=== PATIENT | male | born 1950 | race Caucasian/White ===

== ENCOUNTER 2018-05-24 12:54 | Inpatient (IN) | payer MEDICARE, SELFPAY ==
[~2018-05-24] VITALS: Ht 182.9 cm; Wt 70.4 kg
[2018-05-24] MEDS ORDERED: SODIUM CHLORIDE FLUSH 10ML SYR IVF ONE (13:30)
[2018-05-24] MEDS ORDERED: ONDANSETRON 2MG/ML, 2ML IVPush ONE (13:30)
[2018-05-24] MEDS ORDERED: ONDANSETRON 2MG/ML, 2ML ONE (13:49)
[2018-05-24] MEDS ORDERED: MORPHINE SULFATE 4 MG/ML, 1ML ONE ×2 (13:49→15:49)
[2018-05-24] MEDS: MORPHINE SULFATE 4 MG/ML, 1ML IVPush PRN ×2 (13:52→15:52)
[2018-05-24 14:01] LABS: BASOPHILS # (AUTO) 0.01 x10^3/uL (0-0.1); BASOPHILS % (AUTO) 0 % (0-1); EOSINOPHILS # (AUTO) 0.01 x10^3/uL (0-0.4); EOSINOPHILS % (AUTO) 0 % (1-7); LYMPHOCYTES # (AUTO) 1.32 x10^3/uL (1-3.4); LYMPHOCYTES % (AUTO) 11 % (22-44); MD NO; MEAN CORPUSCULAR HEMOGLOBIN 31.7 pg (27.5-34.5); MEAN CORPUSCULAR HGB CONC 33.6 g/dL (33.2-36.2); MEAN CORPUSCULAR VOLUME 94.4 fL (81-97); MEAN PLATELET VOLUME 8.2 fL (7.4-10.4); MONOCYTES # (AUTO) 0.49 x10^3/uL (0.2-0.8); MONOCYTES % (AUTO) 4 % (2-9); NEUTROPHILS # (AUTO) 10.67 x10^3/uL (1.8-6.8); NEUTROPHILS % (AUTO) 85 % (42-75); PLATELET COUNT 220 x10^3/uL (130-400); RED BLOOD COUNT 4.92 x10^6/uL (4.38-5.82); RED CELL DISTRIBUTION WIDTH 13.9 % (9.4-14.8)
[2018-05-24 14:09] LABS: INTERNATIONAL NORMALIZED RATIO 1.04 (0.93-1.1)
[2018-05-24 14:10] LABS: ALANINE AMINOTRANSFERASE 21 U/L (12-78); ANION GAP 13 mmol/L (5-15); CALCIUM 9.6 mg/dL (8.5-10.1); CHLORIDE 105 mmol/L (98-107); CREATININE 1.12 mg/dL (0.7-1.3)
[2018-05-24 14:12] LABS: ALKALINE PHOSPHATASE 91 U/L (45-117); BILIRUBIN,TOTAL 0.5 mg/dL (0.2-1.0)
[2018-05-24] MEDS ORDERED: OMNIPAQUE 350 MG/ML, 150 ML BOTTLE ONE (15:26)
[2018-05-24] MEDS ORDERED: HEPARIN 25,000 UNITS/500ML PMX 500 ML ONE (16:29)
[2018-05-24] MEDS ORDERED: HEPARIN 5,000 UNITS/ML, 1ML ONE (16:29)
[2018-05-24] MEDS ORDERED: HEPARIN 5,000 UNITS/ML, 1ML IV PRN (16:30)
[2018-05-24] MEDS ORDERED: HEPARIN 5,000 UNITS/ML, 1ML IV ONE (16:30)
[2018-05-24] MEDS: HEPARIN 25,000 UNITS/500ML PMX 500 ML IV PRN (17:08)
[2018-05-24] MEDS ORDERED: SODIUM CHLORIDE 0.9% 1,000 ML IV SCH (17:26)
[2018-05-24] MEDS ORDERED: LABETALOL 5MG/ML, 20ML IVPush PRN (17:30)
[2018-05-24] MEDS ORDERED: hydrALAzine 20 MG/ML, 1ML IVPush PRN (17:30)
[2018-05-24] MEDS ORDERED: POLYETHYLENE GLYCOL 17 GM PACKET PO PRN (17:30)
[2018-05-24] MEDS ORDERED: BISACODYL 10 MG SUPP PR PRN (17:30)
[2018-05-24] MEDS ORDERED: DOCUSATE 100 MG CAPSULE PO PRN (17:30)
[2018-05-24] MEDS ORDERED: ACETAMINOPHEN 325 MG TABLET PO PRN (17:30)
[2018-05-24] MEDS: NICOTINE 21 MG/24 HR PATCH.TD24 TD SCH (17:30)
[2018-05-24] MEDS ORDERED: BACLOFEN 10 MG TABLET PO PRN (17:30)
[2018-05-24] MEDS ORDERED: ACET325T14 PO (17:32)
[2018-05-24] MEDS: HYDROcodone/APAP 5/325 TABLET PO PRN (19:30)
[2018-05-24 19:32] VITALS: BP 158/79
[2018-05-24 20:53] LABS: MICROSCOPIC NOT IND
[2018-05-24 21:04] LABS: CULTURE INDICATED? NO
[2018-05-24] MEDS ORDERED: morphine SULFATE/PF 0.5 MG/ML, 10ML IV ONE (22:30)
[2018-05-24] MEDS ORDERED: morphine SULFATE 10 MG/ML, 1ML ONE (22:36)
[2018-05-24] MEDS ORDERED: morphine SULFATE 10 MG/ML, 1ML IVPush ONE (23:00)
[2018-05-25 02:47] VITALS: BP 154/74
[2018-05-25 05:55] LABS: BASOPHILS # (AUTO) 0.05 x10^3/uL (0-0.1); BASOPHILS % (AUTO) 1 % (0-1); EOSINOPHILS # (AUTO) 0.13 x10^3/uL (0-0.4); EOSINOPHILS % (AUTO) 1 % (1-7); LYMPHOCYTES # (AUTO) 2.73 x10^3/uL (1-3.4); LYMPHOCYTES % (AUTO) 25 % (22-44); MD NO; MEAN CORPUSCULAR HEMOGLOBIN 32.5 pg (27.5-34.5); MEAN CORPUSCULAR HGB CONC 33.8 g/dL (33.2-36.2); MEAN CORPUSCULAR VOLUME 96.1 fL (81-97); MEAN PLATELET VOLUME 8.1 fL (7.4-10.4); MONOCYTES # (AUTO) 0.78 x10^3/uL (0.2-0.8); MONOCYTES % (AUTO) 7 % (2-9); NEUTROPHILS # (AUTO) 7.32 x10^3/uL (1.8-6.8); NEUTROPHILS % (AUTO) 67 % (42-75); PLATELET COUNT 184 x10^3/uL (130-400); RED BLOOD COUNT 4.47 x10^6/uL (4.38-5.82)
[2018-05-25 06:04] LABS: ANION GAP 7 mmol/L (5-15); CALCIUM 8.6 mg/dL (8.5-10.1); CHLORIDE 105 mmol/L (98-107); CREATININE 0.88 mg/dL (0.7-1.3)
[2018-05-25] MEDS: HYDROcodone/APAP 5/325 TABLET PO PRN ×4 (06:34→20:30)
[2018-05-25 07:59] LABS: CHOL/HDL RATIO 4.5
[2018-05-25 08:00] VITALS: BP 162/81
[2018-05-25 13:45] VITALS: BP 108/69
[2018-05-25] MEDS: NICOTINE 21 MG/24 HR PATCH.TD24 TD SCH (17:54)
[2018-05-25 20:00] VITALS: BP 132/71
[2018-05-25] MEDS: HEPARIN 25,000 UNITS/500ML PMX 500 ML IV PRN (22:15)
[2018-05-26 02:00] VITALS: BP 122/67
[2018-05-26] MEDS ORDERED: HEPARIN 5,000 UNITS/ML, 1ML ONE (06:20)
[2018-05-26] MEDS ORDERED: PROTAMINE SULFATE 10 MG/ML, 5ML ONE ×2 (06:20→06:25)
[2018-05-26] MEDS ORDERED: THROMBIN 5,000 UNIT VIAL TP ONE ×2 (06:20→07:16)
[2018-05-26] MEDS ORDERED: HEPARIN 1,000 UNITS/ML, 10ML ONE ×2 (06:24→07:16)
[2018-05-26] MEDS ORDERED: MIDAZOLAM 1 MG/ML, 2ML ONE (07:08)
[2018-05-26] MEDS ORDERED: FENTANYL PF 250 MCG/5ML ONE (07:08)
[2018-05-26] MEDS ORDERED: LIDOCAINE-MPF 2% ,5ML ONE (07:10)
[2018-05-26] MEDS ORDERED: PROPOFOL 10 MG/ML, 20ML ONE (07:10)
[2018-05-26] MEDS ORDERED: ROCURONIUM 10MG/ML,5ML ONE (07:10)
[2018-05-26] MEDS ORDERED: PHENYLEPHRINE 10 MG/ML ONE (07:11)
[2018-05-26] MEDS ORDERED: CEFAZOLIN 1,000 MG ONE ×2 (07:11)
[2018-05-26] MEDS ORDERED: NEOSTIGMINE 1 MG/ML, 10ML ONE (07:22)
[2018-05-26] MEDS ORDERED: DEXAMETHASONE 4 MG/ML, 1ML ONE (07:22)
[2018-05-26] MEDS ORDERED: BACITRACIN 50,000 UNIT ONE (07:43)
[2018-05-26] MEDS ORDERED: HALOPERIDOL 5 MG/ML IV PRN (08:30)
[2018-05-26] MEDS ORDERED: ALBUTEROL/IPRATROPIUM 2.5MG/0.5MG, 3 ML NPPB PRN (08:30)
[2018-05-26] MEDS ORDERED: HYDROmorphone 2 MG/ML, 1ML IVPush PRN (08:30)
[2018-05-26] MEDS ORDERED: hydrALAzine 20 MG/ML, 1ML IV PRN (08:30)
[2018-05-26] MEDS ORDERED: MEPERIDINE/PF 25MG/0.5ML IVPush PRN (08:30)
[2018-05-26] MEDS ORDERED: LORazepam 2 MG/ML, 1ML IVPush PRN (08:30)
[2018-05-26] MEDS ORDERED: ACETAMINOPHEN 325 MG TABLET PO PRN (08:30)
[2018-05-26] MEDS ORDERED: OXYcodone 5 MG/5 ML ORAL.SOL UDC PO PRN (08:30)
[2018-05-26] MEDS ORDERED: LABETALOL 5MG/ML, 20ML IV PRN (08:30)
[2018-05-26] MEDS ORDERED: PROMETHAZINE 25 MG/ML, 1ML IV PRN (08:30)
[2018-05-26] MEDS ORDERED: NEOSPORIN OINT, 15GM ONE (08:52)
[2018-05-26] MEDS ORDERED: OXYcodone 5 MG/5 ML ORAL.SOL UDC ONE ×2 (09:29→09:34)
[2018-05-26] MEDS ORDERED: FENTANYL PF 100 MCG/2ML ONE (09:29)
[2018-05-26] MEDS: FENTANYL PF 100 MCG/2ML IV PRN ×2 (09:36→09:41)
[2018-05-26] MEDS: HYDROcodone/APAP 5/325 TABLET PO PRN ×2 (13:07→17:30)
[2018-05-26 14:00] VITALS: BP 110/64
[2018-05-26] MEDS: NICOTINE 21 MG/24 HR PATCH.TD24 TD SCH (17:30)
[2018-05-26 19:25] VITALS: BP 108/62
[2018-05-27 01:39] VITALS: BP 116/69
[2018-05-27] MEDS: HYDROcodone/APAP 5/325 TABLET PO PRN ×3 (05:31→20:07)
[2018-05-27 05:56] LABS: ALBUMIN 3.2 g/dL (3.4-5.0); ANION GAP 6 mmol/L (5-15); CALCIUM 8.8 mg/dL (8.5-10.1); CHLORIDE 103 mmol/L (98-107); CREATININE 1.03 mg/dL (0.7-1.3)
[2018-05-27 06:49] VITALS: BP 100/63
[2018-05-27] MEDS: ASPIRIN 81 MG TABLET EC PO SCH (10:45)
[2018-05-27] MEDS: CLOPIDOGREL 75 MG TABLET PO SCH (10:45)
[2018-05-27 12:19] VITALS: BP 114/66
[2018-05-27] MEDS: NICOTINE 21 MG/24 HR PATCH.TD24 TD SCH (16:40)
[2018-05-27 19:11] VITALS: BP 119/75
[2018-05-28 01:45] VITALS: BP 120/74
[2018-05-28] MEDS: ASPIRIN 81 MG TABLET EC PO SCH (06:03)
[2018-05-28 06:54] VITALS: BP 100/66
[2018-05-28] MEDS ORDERED: OXYcodone/APAP 7.5/325MG TABLET PO PRN (07:30)
[2018-05-28] MEDS: CLOPIDOGREL 75 MG TABLET PO SCH (09:00)
[2018-05-28] MEDS ORDERED: ASPI81TA45 PO (10:19)
[2018-05-28] MEDS ORDERED: ATOR20TA37 PO (10:19)
[2018-05-28] MEDS ORDERED: CLOP75TA PO (10:19)
[2018-05-28] MEDS ORDERED: OXYC1TAB7 PO (10:22)
[2018-05-28] MEDS ORDERED: OXYcodone/APAP 5/325MG TABLET PO PRN (10:30)
[2018-05-28] MEDS ORDERED: ATORVASTATIN 20 MG TABLET PO SCH (21:00)
== END 2018-05-28 12:30 | disposition home or self-care (01) | DRG 254 ==
LOC: ED 16:20 → EDIP 16:21 → 4WST 18:46 → DCLOUNGE 05-28 12:11
PROVIDERS: ADMIT Internal Medicine; ATTEND Internal Medicine
PROC: 041L0JH Bypass Left Femoral Artery to Right Femoral Artery with Synthetic Substitute, Open Approach (ICD-10-PCS; 2018-05-26)
PROC: 04CK0ZZ Extirpation of Matter from Right Femoral Artery, Open Approach (ICD-10-PCS; principal; 2018-05-26 07:30)
DX: T82.858A Stenosis of other vascular prosthetic devices, implants and grafts, initial encounter (principal); Y83.8 Other surgical procedures as the cause of abnormal reaction of the patient, or of later complication, without mention of misadventure at the time of the procedure; E78.5 Hyperlipidemia, unspecified; I25.10 Atherosclerotic heart disease of native coronary artery without angina pectoris; F17.210 Nicotine dependence, cigarettes, uncomplicated; R53.81 Other malaise; I77.9 Disorder of arteries and arterioles, unspecified; J44.9 Chronic obstructive pulmonary disease, unspecified; Z95.2 Presence of prosthetic heart valve; Y92.89 Other specified places as the place of occurrence of the external cause; Z91.19 Patient's noncompliance with other medical treatment and regimen; Z88.6 Allergy status to analgesic agent; Z91.040 Latex allergy status; I16.0 Hypertensive urgency
CPT/HCPCS: 36415; 74176; 75635; 80048; 80053; 80061; 81003; 82040; 83690; 85025; 85520; 85610; 85730; 88305; 93005; 93925; 96374; 96375; C1768; G0378; J0690; J1100; J1644; J2250; J2405; J2704; J2710; J2720; J3010; J3490; Q9967; C1757; J2270; J2370; J7030